=== PATIENT | female | born 2000 | race African-American/Black ===

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

== ENCOUNTER → 2020-08-21 | Outpatient (CLI) | payer BC ==
[2020-08-21] MEDS: IOHEXOL 240 MG/ML 50ML VIAL. PO ONE (11:15)
--- NOTE | 2020-08-21 13:16 | RAD ---
Exam Date: 08/21/2020 11:[address] ABDOMEN+PELVIS W Indication: Reason: RECURRENT INCISIONAL HERNIA / Spl. Instructions: 50ML OMNI 240 PO / History: TECHNIQUE: CT examination of the abdomen and pelvis was performed with oral contrast. No intravenous contrast was administered. One or more of the following dose reduction techniques were utilized: *Automated exposure control (AEC) *Adjustment of mA and/or kV according to patient size *Use of iterative reconstruction technique *CT scan done according to ALARA, or ALARA/IMAGE GENTLY FINDINGS: The visualized lung bases are clear. The liver, gallbladder, spleen, pancreas, adrenal glands and kidneys are normal. Urinary bladder is normal in appearance. There are likely 2 small ventral fat-containing hernias at the midline just above the umbilicus measu ring approximately 2 cm each. No herniated loops of bowel are seen. There is no bowel obstruction or inflammation. The appendix is normal. No significant atherosclerotic calcifications are seen. No lymphadenopathy or ascites is seen. Osseous structures are intact. IMPRESSION: There are 2 small ventral fat-containing hernias at the midline just superior to the umbilicus. No he rniated loops of bowel are seen. Electronically signed by: Jass Silva MD (08/21/2020 1:14 PM) [id number]
== END ==
LOC: CT 11:07
PROVIDERS: ATTEND Surgery
DX: K43.2 Incisional hernia without obstruction or gangrene (principal)
CPT/HCPCS: 74176; Q9966

== ENCOUNTER → 2020-09-16 | Outpatient (CLI) | payer BC ==
[~2020-09-16] MED LIST: MEDR150D9 IM; OXYC1TAB15 PO
== END ==
LOC: LAB 13:44
PROVIDERS: ATTEND Surgery
DX: Z01.812 Encounter for preprocedural laboratory examination (principal); Z20.822 Contact with and (suspected) exposure to COVID-19
CPT/HCPCS: U0003; U0005

== ENCOUNTER 2020-09-19 09:21 | Day surgery (SDC) | payer BC ==
[~2020-09-19] VITALS: Ht 157.5 cm; Wt 61.5 kg
[~2020-09-19 09:21] MED LIST changes: +ACETAMINOPHEN 500 MG TABLET PO ONE; +HYDROmorphone 2 MG/ML VIAL IVP PRN; +IV RINGERS,LACTATED 1000ML 1,000 ML IV SCH; -MEDR150D9 IM; +MORPHINE SULFATE 2 MG/ML VIAL. IVP PRN; -OXYC1TAB15 PO; +PROCHLORPERAZINE 10 MG/2 ML VIAL. IVP PRN; +ceFAZolin SODIUM IV Push 1 GM VIAL. IVP PRN; +fentaNYL PF VIAL 100 MCG/2 ML VIAL IVP PRN
[2020-09-19 10:04] VITALS: BP 104/69
--- NOTE | 2020-09-19 10:27 | PDOC1 ---
History and Physical Date of Admission Date of Admission DATE: 09/19/20 TIME: 10:25 Identification/Chief Complaint Chief Complaint Abdominal hernias Source Source: Chart review, Patient History of Present Illness History of Present Illness 19-year-old female with complaints of painful bulge just above her umbilicus she previously had a umbilical hernia repaired after cholecystectomy. CT scan shows 2 small midline hernias approximately 2 cm each in this area Past Medical History Cardiovascular: No pertinent hx Pulmonary: No pertinent hx GI: No pertinent hx Heme/Onc: No pertinent hx Hepatobiliary: No pertinent hx Psych: No pertinent hx Rheumatologic: No pertinent hx Infectious disease: No pertinent hx ENT: No pertinent hx Renal/: No pertinent hx Endocrine: No pertinent hx Dermatology: No pertinent hx Past Surgical History Past Surgical History: Cholecystectomy, Hernia Repair Family History Family History: No Significant Social History Smoke: No ALCOHOL: none Drugs: None Current Medications Current Medications Current Medications Cefazolin Sodium (Ancef) 1 gm 1X PREOP PRN IVP PRIOR TO PROCEDURE; Start 09/18/20 at 17:45 Fentanyl Citrate (Fentanyl 2ml Vial) 25 mcg PRN Q5MIN PRN IVP MILD PAIN 1-3; Start 09/19/20 at 06:00; Stop 09/20/20 at 05:59 Fentanyl Citrate (Fentanyl 2ml Vial) 50 mcg PRN Q5MIN PRN IVP MODERATE PAIN 4- 6; Start 09/19/20 at 06:00; Stop 09/20/20 at 05:59 Morphine Sulfate (Morphine Sulfate) 1 mg PRN Q10MIN PRN IVP SEVERE PAIN 7-10; Start 09/19/20 at 06:00; Stop 09/20/20 at 05:59 Ringer's Solution 1,000 ml @ 30 mls/hr Q24H IV ; Start 09/19/20 at 06:00; Stop 09/19/20 at 17:59 Hydromorphone HCl (Dilaudid) 0.5 mg PRN Q10MIN PRN IVP SEVERE PAIN 7-10, 2nd CHOICE; Start 09/19/20 at 06:00; Stop 09/20/20 at 05:59 Prochlorperazine Edisylate (Compazine) 5 mg PACU PRN PRN IVP NAUSEA, MRX1; Start 09/19/20 at 06:00; Stop 09/20/20 at 05:59 Acetaminophen (Tylenol) 500 mg STK-MED ONCE PO ; Start 09/19/20 at 09:03; Stop 09/19/20 at 09:03; Status DC Allergies Allergies: Coded Allergies: No Known Allergies (Verified Allergy, Unknown, 09/19/20) ROS Gastrointestinal: Yes Abdominal Pain Physical Exam General: Alert, Oriented X3, Cooperative, No acute distress HEENT: Atraumatic, EOMI Lungs: Clear to auscultation, Normal air movement Heart: RRR, no murmurs Abdomen: Normal bowel sounds, Soft, Other (Tender palpable bulge just above her umbilicus consistent with hernia) Rectal Exam: not examined Extremities: No edema Skin: No significant lesion Neuro: Normal speech Psych/Mental Status: Mental status NL Vitals Vitals Vital Signs Date Time Temp Pulse Resp B/P (MAP) Pulse Ox O2 Delivery O2 Flow Rate FiO2 09/19/20 10:08 97.8 68 18 104/69 100 Room Air 97.8 Labs Labs Laboratory Tests Test 09/19/20 08:55 Bedside Urine HCG, Qualitative Hcg negative (Negative) Laboratory Tests Test 09/19/20 08:55 Bedside Urine HCG, Qualitative Hcg negative (Negative) VTE Prophylaxis Ordered VTE Prophylaxis Devices: Yes VTE Pharmacological Prophylaxi: Contraindicated Assessment/Plan Assessment/Plan Recurrent incisional ventral hernia plan robotic assisted laparoscopic repair with mesh Justifications for Admission Other Justification MARCE WILL MD September 19, 2020 10:27
[2020-09-19] MEDS ORDERED: MEDR150D9 IM (10:29)
[2020-09-19] MEDS ORDERED: ACETAMINOPHEN 500 MG TABLET PO ONE (10:45)
[2020-09-19] MEDS ORDERED: BUPIVACAINE-EPI 0.25% 30 ML VIAL KIT. ONE (10:49)
[2020-09-19] MEDS ORDERED: MINERAL OIL for SURGERY 10 ML VIAL. MC ONE (10:50)
[2020-09-19] MEDS ORDERED: LIDOCAINE 2% PF 5 ML VIAL. ONE (11:08)
[2020-09-19] MEDS ORDERED: PROPOFOL 10 MG/ML (20ML) VIAL. IV ONE (11:08)
[2020-09-19] MEDS ORDERED: ROCURONIUM 50 MG/5 ML VIAL. ONE (11:09)
[2020-09-19] MEDS ORDERED: MIDAZOLAM HCL/PF 2 MG/2 ML VIAL. ONE (11:09)
[2020-09-19] MEDS ORDERED: fentaNYL PF VIAL 250 MCG/5 ML VIAL ONE (11:09)
[2020-09-19] MEDS ORDERED: SEVOFLURANE 61 TO 120 MINUTES. IH ONE (12:31)
[2020-09-19] MEDS ORDERED: GLYCOPYRROLATE 1 MG/5 ML VIAL. ONE (12:31)
[2020-09-19] MEDS ORDERED: NEOSTIGMINE METHYLSULFATE 5 MG/5 ML SYRINGE. ONE (12:31)
[2020-09-19] MEDS ORDERED: KETOROLAC 30 MG/ML VIAL. ONE (12:49)
--- NOTE | 2020-09-19 13:36 | PDOC4 ---
Operative Note Operative Note Date: September 19, 2020 at 1333 Preoperative diagnosis: Recurrent incisional hernia Postoperative diagnosis: Same Procedure: Robotic assisted laparoscopic ventral hernia repair with mesh Surgeon: Justin Specimen: None Dictation: Patient is a 19-year-old female who has had a previous umbilical hernia repaired comes back now with complaints of painful bulge in the same area CT scan showing 2 cm hernia. Procedure of robotic assisted laparoscopic incisio nal hernia repair with mesh was explained to the patient detail risk benefits were also discussed including bleeding infection injury to intra-abdominal contents possible necessitating further open operations alternatives to this procedure also discussed with the patient who seemed to understand and gave both verbal and written consent to have the procedure performed. Patient was taken to the operating room placed in the supine position general anesthesia was initiated once patient was sleeping intubated her abdomen was prepped and draped in usual sterile fashion using ChloraPrep. An area in the left upper quadrant was injected with quarter percent Marcaine with epinephrine incision was made 11 blade scalpel and a 5 mm Visiport was placed under direct visualization into the abdomen creating pneumoperitoneum once this was complete 5 mm scope was placed within the abdomen and inspected there is a small ventral hernia noted with some incarcerated omentum otherwise normal abdomen. 8 mm da Naresh port was placed in the left midabdomen and a millimeter da Naresh ports placed in left lower abdomen and the 5 mm Visiport was changed out to a millimeter da Naresh port. Da Naresh robot was brought and docked all port sites surgeon were to the robotic console using a grasper and Endo Dejan scissors to the incarcerated omentum was taken down from the hernia defect. The hernia defect was then closed with a running 2 OV lock nonabsorbable suture. There are some difficulties with a 8 mm scope was so a 12 mm port was placed in the skin scope site and a 12 mm scope was then used. Ventral light ST mesh was then placed over the hernia closure site this was sewn into place with a running 2 OV lock absorbable suture. Sutures removed the da Naresh robot was undocked from all port sites all ports were removed the fascial defect at the 12 mm port site was closed with a single interrupted 0 Vicryl suture the skin was reapproximated all port sites for subcuticular Monocryl Mastisol Steri-Strips and island dressings were applied. Patient was awakened and extubated operating room taken to recovery in stable condition all sponge instrument needle counts listed as correct estimated blood loss 10 mL MARCE WILL MD September 19, 2020 13:36
--- NOTE | 2020-09-19 13:38 | DISCH ---
DISCHARGE INSTRUCTIONS Condition on Discharge Condition on Discharge: Stable Activity After Discharge Activity Instructions for Disc: Avoid exertion Other activity instructions: No lifting more than 20 pounds for 2 weeks Diet after Discharge Diet after Discharge: Regular Wound Incision Care Other wound/incision instructi: Yamileth showjim 24 hours Contacting the DRCarolyn after DC Call your doctor for: If your condition worsens Follow-Up Follow up with: Dr. Will in 2 weeks MARCE WILL MD September 19, 2020 13:38
[2020-09-19] MEDS ORDERED: OXYC1TAB15 PO (14:14)
[2020-09-19] MEDS ORDERED: oxyCODONE/APAP 5/325 1 TAB TABLET PO PRN (14:15)
[2020-09-19 14:32] VITALS: BP 108/73
== END 2020-09-19 14:55 | disposition home or self-care (01) ==
LOC: SURG 09:21
PROVIDERS: ATTEND Surgery
DX: K43.0 Incisional hernia with obstruction, without gangrene (principal); Z79.899 Other long term (current) drug therapy; Z98.890 Other specified postprocedural states; Z87.891 Personal history of nicotine dependence; Z72.89 Other problems related to lifestyle
CPT/HCPCS: 49657; 81025; J0690; J1885; J2704; J2710; J3010; J3490; S2900; A4364; A4657; A4930; A6219; C1781; J2250